=== PATIENT | female | born 1985 | race Caucasian/White ===

== ENCOUNTER 2021-06-01 15:52 | Emergency (ER) | payer OTHER ==
[2021-06-01 16:18] VITALS: BP 129/70; PULSE 72; TEMP 97.9; BMI 32.1
[2021-06-01 19:20] LABS: HCG,QUALITATIVE URINE Negative
[2021-06-01 19:21] LABS: EPI CELLS 13 /uL (0-25.1); HYALINE CASTS 0 /uL (0-3.1); PH,URINE 5.5 (5.0-8.0); URINE APPEARANCE CLEAR; URINE BACTERIA 479 /uL (0-1359); URINE BILIRUBIN NEGATIVE (NEGATIVE); URINE COLOR YELLOW; URINE GLUCOSE (UA) NEGATIVE (NEGATIVE); URINE KETONE NEGATIVE (NEGATIVE); URINE LEUK ESTERASE TRACE (NEGATIVE); URINE NITRITE NEGATIVE (NEGATIVE); URINE PROTEIN NEGATIVE (NEGATIVE); URINE RBC 9 /uL (0-23.9); URINE UROBILINOGEN 0.2 mg/dL (0.2-1.0); URINE WBC 37 /uL (0-25.8)
[2021-06-01] MEDS ORDERED: MAG HYDROX/AL HYDROX/SIMETH 30 ML UNIT-DOSE CUP PO ONE (20:10)
[2021-06-01] MEDS ORDERED: IBUPROFEN 600 MG TABLET (FP) PO ONE ×2 (20:10→20:17)
[2021-06-01] MEDS ORDERED: MAG HYDROX/AL HYDROX/SIMETH 30 ML UNIT-DOSE CUP ONE (20:17)
== END 2021-06-01 21:28 | disposition home or self-care (01) ==
LOC: JER 15:52
DX: N30.00 Acute cystitis without hematuria (principal); K59.00 Constipation, unspecified
CPT/HCPCS: 81003; 84703; 87086; 99283-25

== ENCOUNTER 2021-06-02 23:50 | Emergency (ER) | payer OTHER ==
[2021-06-03 00:04] VITALS: TEMP 99.7; BMI 32.1
[2021-06-03] MEDS ORDERED: ACETAMINOPHEN 1000 MG/100 ML BAG IVPB ONE (00:48)
[2021-06-03] MEDS ORDERED: SODIUM CHLORIDE 1,000 ML IV STA (00:48)
[2021-06-03] MEDS ORDERED: ACETAMINOPHEN INJECTION 100 ML IVPB ONE (00:50)
[2021-06-03 01:35] LABS: BASO % 0.3 % (0-2.0); HEMATOCRIT 37.5 % (32.4-45.2); HEMOGLOBIN 12.6 GM/dL (10.7-15.3); MCH 27.9 pg (25.7-33.7); MCHC 33.7 g/dl (32.0-36.0); MEAN CELL VOLUME 82.8 fl (80-96); MEAN PLT VOLUME 8.7 fl (7.5-11.1); NEUT % 79.7 % (42.8-82.8); PLATELET COUNT 248 10^3/uL (134-434); RBC 4.53 M/mm3 (3.60-5.2); WHITE BLOOD COUNT 10.5 K/mm3 (4.0-10.0)
[2021-06-03 01:39] LABS: HCG,QUALITATIVE URINE Negative
[2021-06-03 01:46] LABS: EPI CELLS 18 /uL (0-25.1); HYALINE CASTS 0 /uL (0-3.1); URINE APPEARANCE CLEAR; URINE BACTERIA 70 /uL (0-1359); URINE BILIRUBIN NEGATIVE (NEGATIVE); URINE COLOR YELLOW; URINE GLUCOSE (UA) NEGATIVE (NEGATIVE); URINE KETONE NEGATIVE (NEGATIVE); URINE LEUK ESTERASE NEGATIVE (NEGATIVE); URINE NITRITE NEGATIVE (NEGATIVE); URINE PROTEIN NEGATIVE (NEGATIVE); URINE RBC 35 /uL (0-23.9); URINE UROBILINOGEN 0.2 mg/dL (0.2-1.0); URINE WBC 12 /uL (0-25.8)
[2021-06-03 01:55] LABS: ALBUMIN 3.6 g/dl (3.4-5.0)
[2021-06-03 01:56] LABS: BLOOD UREA NITROGEN 8.2 mg/dL (7-18)
[2021-06-03 01:58] LABS: CREATININE 0.7 mg/dL (0.55-1.3)
[2021-06-03 02:00] LABS: BILIRUBIN,TOTAL 0.4 mg/dL (0.2-1); TOT PROT 7.4 g/dl (6.4-8.2)
[2021-06-03 04:46] VITALS: BP 116/69; PULSE 88
== END 2021-06-03 04:55 | disposition home or self-care (01) ==
LOC: JER 23:50
PROC: 3E0333Z Introduction of Anti-inflammatory into Peripheral Vein, Percutaneous Approach (ICD-10-PCS; principal; 2021-06-02)
PROC: 3E0337Z Introduction of Electrolytic and Water Balance Substance into Peripheral Vein, Percutaneous Approach (ICD-10-PCS; 2021-06-02)
DX: R10.13 Epigastric pain (principal); M79.10 Myalgia, unspecified site
CPT/HCPCS: 36415; 74177-TC; 80053; 81003; 83690; 84703; 85025; 87804; 99285-25; Q9967

== ENCOUNTER 2024-03-15 09:22 | Emergency (ER) | payer OTHER ==
[2024-03-15] MEDS ORDERED: ALBUTEROL SO4 2.5/IPRATROPIUM 0.5 INH SOL 3 ML VIAL.NEB. NEB ONE (09:37)
[2024-03-15] MEDS: ALBUTEROL SO4 2.5/IPRATROPIUM 0.5 INH SOL 3 ML VIAL.NEB. NEB ONE (09:46)
[2024-03-15 10:03] VITALS: RESP 20; TEMP 99.2; BMI 32.3
[2024-03-15 10:14] LABS: VENOUS BASE EXCESS -1.3 mmol/L (-2-2); VENOUS O2 SATURATION 55.9 % (70-80); VENOUS PCO2 49.2 mmHg (38-52); VENOUS PH 7.329 (7.310-7.410)
[2024-03-15 10:17] LABS: BASO % 0.4 % (0-2.0); EOS % 3.3 % (0-4.5); HEMATOCRIT 42.1 % (32.4-45.2); HEMOGLOBIN 14.2 GM/dL (10.7-15.3); LYMPH % 35.3 % (8-40); MCH 28.7 pg (25.7-33.7); MCHC 33.7 g/dl (32.0-36.0); MEAN CELL VOLUME 85.3 fl (80-96); MEAN PLT VOLUME 8.8 fl (7.5-11.1); MONO % 5.3 % (3.8-10.2); NEUT % 55.7 % (42.8-82.8); PLATELET COUNT 251 10^3/uL (134-434); RBC 4.93 M/mm3 (3.60-5.2); WHITE BLOOD COUNT 8.9 K/mm3 (4.0-10.0)
[2024-03-15] MEDS ORDERED: ACETAMINOPHEN 325 MG TABLET (FP) ONE (10:40)
[2024-03-15] MEDS ORDERED: LIDOCAINE 5% TOPICAL PATCH ONE (10:40)
[2024-03-15 10:43] LABS: POTASSIUM 3.1 mmol/L (3.5-5.1)
[2024-03-15 10:46] LABS: CALCIUM 8.7 mg/dL (8.5-10.1)
[2024-03-15] MEDS: LIDOCAINE 5% TOPICAL PATCH TP ONE (10:46)
[2024-03-15 10:47] LABS: ALBUMIN 3.6 g/dl (3.4-5.0); BLOOD UREA NITROGEN 10.4 mg/dL (7-18)
[2024-03-15] MEDS: ACETAMINOPHEN 325 MG TABLET (FP) PO ONE (10:47)
[2024-03-15 10:51] LABS: BILIRUBIN,TOTAL 0.5 mg/dL (0.2-1); CREATININE 0.7 mg/dL (0.55-1.3); TOT PROT 7.6 g/dl (6.4-8.2)
[2024-03-15] MEDS ORDERED: POTASSIUM CHLORIDE TABS 20 MEQ TABLET.ER (FP) PO ONE (11:13)
[2024-03-15] MEDS ORDERED: ALBUTEROL SO4 0.083% IH SOL 2.5 MG/3 ML VIAL.NEB. NEB ONE (11:13)
[2024-03-15] MEDS: POTASSIUM CHLORIDE TABS 20 MEQ TABLET.ER (FP) PO ONE (11:16)
[2024-03-15] MEDS: ALBUTEROL SO4 0.083% IH SOL 2.5 MG/3 ML VIAL.NEB. NEB ONE (11:16)
[2024-03-15 12:11] VITALS: BP 125/73; PULSE 95
== END 2024-03-15 12:10 | disposition home or self-care (01) ==
LOC: JER 09:22
PROC: 3E0F7GC Introduction of Other Therapeutic Substance into Respiratory Tract, Via Natural or Artificial Opening (ICD-10-PCS; principal; 2024-03-15)
PROC: 3E0F7GC Introduction of Other Therapeutic Substance into Respiratory Tract, Via Natural or Artificial Opening (ICD-10-PCS; 2024-03-15)
DX: J98.4 Other disorders of lung (principal); R06.2 Wheezing; R05.9 Cough, unspecified; Z20.822 Contact with and (suspected) exposure to COVID-19
CPT/HCPCS: 0241U-QW; 36415; 71045-TC-FY; 80053; 82803; 83735; 85025; 93005; 93010; 99285-25